=== PATIENT | female | born 1965 | race Caucasian/White ===

== ENCOUNTER 2017-05-01 12:52 | Emergency (ER) | payer BC ==
[~2017-05-01] VITALS: Ht 167.6 cm; Wt 78.5 kg
[2017-05-01 14:12] LABS: HEMATOCRIT 41.3 % (36.0-46.0); MCH 30.8 PG (29.0-34.0); MCHC 34.1 G/DL (30.0-36.0); MCV 90.2 FL (83-99); MEAN PLAT.VOLUME 10.1 uM^3 (9.5-12.4); NRBC (%) 0.3 /100 WBC (0-0); PLATELET COUNT 426 K/uL (156-360); RBC DIS.WIDTH-CV 12.1 % (11.8-14.6); RBC DIS.WIDTH-SD 39.4 % (39-53); RED BLOOD COUNT 4.58 M/uL (3.80-5.20); WHITE BLOOD COUNT 10.3 K/uL (4.1-10.2)
[2017-05-01 14:23] LABS: CHLORIDE 94 mEq/L (99-109); POTASSIUM 3.9 mEq/L (3.7-5.4); SODIUM 136 mEq/L (136-147)
[2017-05-01 14:25] LABS: GLUCOSE 66 mg/dL (70-99)
[2017-05-01 14:27] LABS: ANION GAP 28 MEQ/L (2-14); TOTAL BILIRUBIN 0.5 mg/dL (0.0-1.0)
[2017-05-01 14:29] LABS: ALKALINE PHOSPHATASE 97 IU/L (3-129)
[2017-05-01 14:30] LABS: GFR ESTIMATE (CALCULATED) 32 mL/min/; UREA NITROGEN (BUN) 22 mg/dL (9-23)
[2017-05-01 14:41] LABS: LIPASE 11 U/L (1.0-51.0)
[2017-05-01 16:26] VITALS: BP 132/96
== END 2017-05-01 17:30 | disposition short-term general hospital (02) ==
LOC: EME 12:52
PROVIDERS: Emergency Medicine
DX: E87.2 Acidosis (principal); E86.0 Dehydration; R10.9 Unspecified abdominal pain; R50.9 Fever, unspecified; I10 Essential (primary) hypertension; Z88.0 Allergy status to penicillin
CPT/HCPCS: 71010; 80053; 83690; 85027; 99281; 99285; J2405; J7030